=== PATIENT | male | born 1965 | race Caucasian/White ===

== ENCOUNTER 2019-09-28 10:04 | Observation (INO) ==
[2019-09-28 10:56] LABS: Basophils # 0.1 K/mcL (0.0-0.2); Basophils % 0.8 %; Eosinophils % 0.1 %; Hematocrit 43.1 % (37.5-50.1); Hemoglobin 13.7 g/dL (12.9-16.9); Immature Granulocytes % 0.3 % (0-4); Lymphocytes # 1.4 K/mcL (0.6-4.6); Lymphocytes % 10.1 %; Mean Corpuscular HGB Conc 31.8 g/dL (31.6-35.5); Mean Corpuscular Hemoglobin 27.7 pg (28.0-33.3); Mean Corpuscular Volume 87.2 fL (83.0-100.0); Mean Platelet Volume 11.1 fL (9.4-12.4); Monocytes # 1.6 K/mcL (0.0-1.3); Monocytes % 11.5 %; Neutrophils # 10.7 K/mcL (1.6-8.9); Platelet Count 368 K/mcL (140-400); Red Blood Count 4.94 M/mcL (4.19-5.50); Red Cell Distribution Width 12.7 % (11.5-14.5); Segmented Neutrophils % 77.2 %; White Blood Count 13.8 K/mcL (4.3-11.1)
[2019-09-28 11:10] LABS: Alanine Aminotransferase 76 Units/L (7-52); Albumin 3.5 g/dL (3.5-5.7); Albumin/Globulin Ratio 1.2 (1.1-2.2); Alkaline Phosphatase 191 Units/L (34-104); Aspartate Amino Transferase 74 Units/L (13-39); BUN/Creatinine Ratio 18 (6-26); Bilirubin,Total 1.4 mg/dL (0.3-1.0); Blood Urea Nitrogen 15 mg/dL (6-20); Carbon Dioxide 28 mEq/L (23-29); Chloride 99 mEq/L (98-107); Globulin 2.9 g/dL (2.4-3.5); Glucose 88 mg/dL (70-105); Lipase 7 Units/L (11-82); Osmolality,Calculated 278 (280-300); Potassium 4.3 mEq/L (3.5-5.1); Sodium 134 mEq/L (136-145); Total Protein 6.4 g/dL (6.4-8.9); Troponin I < 0.03 ng/mL (< 0.04); eGFR For African Americans > 60 (> 60); eGFR For Non-African Americans > 60 (> 60)
[2019-09-28 11:13] LABS: Bilirubin,Direct 0.7 mg/dL (0.0-0.2); Bilirubin,Indirect 0.7 mg/dL (0.0-1.0)
[2019-09-28] MEDS ORDERED: *HR* FentaNYL (PF) 100 MCG/2 ML VIAL IVP ONE (11:28)
[2019-09-28] MEDS ORDERED: 0.9 % Sodium Chloride 1,000 ML IVC ONE (11:28)
[2019-09-28] MEDS ORDERED: Naloxone 0.4 MG/ML INJ IVP PRN (11:30)
[2019-09-28] MEDS ORDERED: Ondansetron 4 MG/2 ML VIAL IVP PRN (11:30)
[2019-09-28] MEDS ORDERED: Ketorolac 15 MG/ML VIAL IVP PRN (11:36)
[2019-09-28] MEDS: 0.9 % Sodium Chloride 1,000 ML IVC SCH ×2 (13:09→22:28)
[2019-09-28 13:35] LABS: INR 1.3; Prothrombin Time 14.3 Seconds (9.4-12.1)
[2019-09-28] MEDS ORDERED: Gadolinium Contrast Agent (WT Based) IV PRN (13:46)
[2019-09-28] MEDS: *HR* FentaNYL (PF) 100 MCG/2 ML VIAL IVP PRN ×2 (15:52→22:13)
[2019-09-28 16:23] LABS: Carcinoembryonic Antigen 1.8 ng/mL (Less than 5.0)
[2019-09-28] MEDS: Nicotine 21 MG PATCH.TD24 TD SCH (20:12)
[2019-09-28] MEDS ORDERED: *HR* HYDROmorphone 2 MG TABLET PO ONE (23:28)
[2019-09-29] MEDS ORDERED: *HR* HYDROmorphone (PF) 1 MG/ML SYRINGE IVP ONE (04:43)
[2019-09-29 06:31] LABS: Basophils # 0.1 K/mcL (0.0-0.2); Basophils % 0.8 %; Eosinophils # 0.1 K/mcL (0.0-0.6); Eosinophils % 0.5 %; Hematocrit 43.1 % (37.5-50.1); Hemoglobin 14.1 g/dL (12.9-16.9); Immature Granulocytes % 0.3 % (0-4); Lymphocytes # 1.3 K/mcL (0.6-4.6); Lymphocytes % 9.2 %; Mean Corpuscular HGB Conc 32.7 g/dL (31.6-35.5); Mean Corpuscular Volume 88.5 fL (83.0-100.0); Mean Platelet Volume 11.2 fL (9.4-12.4); Monocytes # 1.8 K/mcL (0.0-1.3); Monocytes % 12.6 %; Neutrophils # 11.2 K/mcL (1.6-8.9); Platelet Count 317 K/mcL (140-400); Red Blood Count 4.87 M/mcL (4.19-5.50); Red Cell Distribution Width 12.7 % (11.5-14.5); Segmented Neutrophils % 76.6 %; White Blood Count 14.6 K/mcL (4.3-11.1)
[2019-09-29 07:01] LABS: BUN/Creatinine Ratio 18 (6-26); Blood Urea Nitrogen 14 mg/dL (6-20); Calcium 8.8 mg/dL (8.6-10.3); Carbon Dioxide 24 mEq/L (23-29); Chloride 98 mEq/L (98-107); Glucose 78 mg/dL (70-105); Magnesium 1.7 mg/dL (1.6-2.6); Osmolality,Calculated 271 (280-300); Phosphorous 2.4 mg/dL (2.7-4.5); Potassium 4.2 mEq/L (3.5-5.1); Sodium 131 mEq/L (136-145); eGFR For African Americans > 60 (> 60); eGFR For Non-African Americans > 60 (> 60)
[2019-09-29 07:02] LABS: Albumin 3.3 g/dL (3.5-5.7); Albumin/Globulin Ratio 1.2 (1.1-2.2); Bilirubin,Direct 0.8 mg/dL (0.0-0.2); Bilirubin,Indirect 0.8 mg/dL (0.0-1.0); Bilirubin,Total 1.6 mg/dL (0.3-1.0); Globulin 2.8 g/dL (2.4-3.5); Total Protein 6.1 g/dL (6.4-8.9)
[2019-09-29] MEDS: Nicotine 21 MG PATCH.TD24 TD SCH (09:01)
[2019-09-29] MEDS ORDERED: 0.9 % Sodium Chloride 500 ML ONE (09:28)
[2019-09-29] MEDS ORDERED: *HR* Midazolam HCl 2 MG/2 ML VIAL IVP ONE (09:44)
[2019-09-29] MEDS ORDERED: *HR* FentaNYL (PF) 100 MCG/2 ML VIAL IVP ONE (09:44)
[2019-09-29] MEDS ORDERED: *HR* FentaNYL (PF) 100 MCG/2 ML VIAL ONE (09:45)
[2019-09-29] MEDS ORDERED: *HR* Midazolam HCl 2 MG/2 ML VIAL ONE (09:46)
[2019-09-29 11:09] VITALS: BP 138/77
== END 2019-09-29 12:33 | disposition home or self-care (01) ==
LOC: EMEROOARM 10:04 → 3BNU 10:04 → SUATTDRO 11:35 → 3BNU 12:43
PROVIDERS: ADMIT Student in an Organized Health Care Education/Training Program; ATTEND Internal Medicine
PROC: IRLIVER (2019-09-29 12:00)

== ENCOUNTER 2019-10-17 14:41 | Inpatient (IN) ==
[2019-10-17] MEDS ORDERED: 0.9 % Sodium Chloride 1,000 ML IVC ONE (15:00)
[2019-10-17] MEDS ORDERED: *HR* HYDROmorphone (PF) 1 MG/ML SYRINGE IVP ONE ×2 (15:00→16:34)
[2019-10-17] MEDS ORDERED: Ondansetron 4 MG/2 ML VIAL IVP ONE (15:06)
[2019-10-17] MEDS ORDERED: Ondansetron 4 MG/2 ML VIAL ONE (15:06)
[2019-10-17 15:19] LABS: Basophils % 0.1 %; Eosinophils % 0.1 %; Hematocrit 44.6 % (37.5-50.1); Hemoglobin 14.4 g/dL (12.9-16.9); Immature Granulocytes % 0.6 % (0-4); Lymphocytes # 0.3 K/mcL (0.6-4.6); Lymphocytes % 1.3 %; Mean Corpuscular HGB Conc 32.3 g/dL (31.6-35.5); Mean Corpuscular Hemoglobin 28.1 pg (28.0-33.3); Mean Corpuscular Volume 87.1 fL (83.0-100.0); Mean Platelet Volume 11.2 fL (9.4-12.4); Monocytes # 1.2 K/mcL (0.0-1.3); Monocytes % 5.1 %; Neutrophils # 21.3 K/mcL (1.6-8.9); Platelet Count 357 K/mcL (140-400); Red Blood Count 5.12 M/mcL (4.19-5.50); Red Cell Distribution Width 15.6 % (11.5-14.5); Segmented Neutrophils % 92.8 %; White Blood Count 22.9 K/mcL (4.3-11.1)
[2019-10-17 15:35] LABS: Alanine Aminotransferase 192 Units/L (7-52); Alkaline Phosphatase 520 Units/L (34-104); Aspartate Amino Transferase 372 Units/L (13-39); BUN/Creatinine Ratio 41 (6-26); Bilirubin,Direct 4.8 mg/dL (0.0-0.2); Bilirubin,Indirect 2.5 mg/dL (0.0-1.0); Bilirubin,Total 7.3 mg/dL (0.3-1.0); Blood Urea Nitrogen 48 mg/dL (6-20); Calcium 8.6 mg/dL (8.6-10.3); Carbon Dioxide 26 mEq/L (23-29); Chloride 99 mEq/L (98-107); Globulin 3.1 g/dL (2.4-3.5); Glucose 126 mg/dL (70-105); Lipase 12 Units/L (11-82); Osmolality,Calculated 290 (280-300); Potassium 5.3 mEq/L (3.5-5.1); Sodium 133 mEq/L (136-145); Total Protein 6.1 g/dL (6.4-8.9); eGFR For African Americans > 60 (> 60); eGFR For Non-African Americans > 60 (> 60)
[2019-10-17 16:12] LABS: Platelet Estimate Normal (Normal)
[2019-10-17] MEDS: Nicotine 21 MG PATCH.TD24 TD SCH (16:16)
[2019-10-17 16:37] LABS: INR 1.1; Prothrombin Time 12.5 Seconds (9.4-12.1)
[2019-10-17] MEDS ORDERED: Isovue-370 500 ML BOTTLE IVP ONE (17:06)
[2019-10-17 18:55] LABS: Bilirubin,Urine Moderate (Negative); Blood,Urine Negative (Negative); Clarity,Urine Clear (Clear); Color,Urine Dark-Yellow (Yellow); Glucose,Urine (UA) Normal (Normal); Ketones,Urine Negative (Negative); Leukocyte Esterase,Urine Negative (Negative); Nitrite,Urine Negative (Negative); PH,Urine 5.5 pH Units (5.0-8.0); Protein,Urine Trace mg/dL (Neg-Trace); Specific Gravity,Urine 1.025 (1.010-1.025)
[2019-10-17] MEDS ORDERED: Acetaminophen 325 MG TABLET PO PRN (20:04)
[2019-10-17] MEDS ORDERED: Ondansetron 4 MG/2 ML VIAL IVP PRN (20:04)
[2019-10-17] MEDS ORDERED: *HR* OxyCODONE Immed Rel 5 MG TABLET PO PRN (20:04)
[2019-10-17] MEDS ORDERED: Naloxone 0.4 MG/ML INJ IVP PRN (20:04)
[2019-10-17] MEDS ORDERED: *HR* Promethazine 25 MG/ML VIAL IVP PRN (20:04)
[2019-10-17] MEDS ORDERED: Ondansetron ODT 4 MG TAB.RAPDIS PO PRN (20:06)
[2019-10-17] MEDS ORDERED: 0.9 % Sodium Chloride 1,000 ML IVC SCH (20:15)
[2019-10-18] MEDS ORDERED: *HR* OxyCODONE Immed Rel 5 MG TABLET PO PRN ×3 (00:22→21:34)
[2019-10-18] MEDS ORDERED: *HR* HYDROmorphone 2 MG/ML SYRINGE IVP ONE (00:23)
[2019-10-18] MEDS ORDERED: Bisacodyl 10 MG RECTAL SUPPOSITORY RC PRN (00:28)
[2019-10-18] MEDS ORDERED: GI Cocktail 40 ML EACH PO ONE (00:30)
[2019-10-18] MEDS: Pantoprazole 40 MG VIAL IVP SCH ×3 (00:49→19:59)
[2019-10-18] MEDS: Furosemide 40 MG/4 ML VIAL IVP SCH (00:49)
[2019-10-18 02:14] LABS: Basophils % 0.1 %; Hematocrit 40.4 % (37.5-50.1); Hemoglobin 13.1 g/dL (12.9-16.9); Immature Granulocytes % 0.9 % (0-4); Lymphocytes # 0.5 K/mcL (0.6-4.6); Mean Corpuscular HGB Conc 32.4 g/dL (31.6-35.5); Mean Corpuscular Hemoglobin 27.9 pg (28.0-33.3); Mean Corpuscular Volume 86.1 fL (83.0-100.0); Mean Platelet Volume 11.5 fL (9.4-12.4); Monocytes # 0.8 K/mcL (0.0-1.3); Monocytes % 3.6 %; Neutrophils # 20.8 K/mcL (1.6-8.9); Platelet Count 290 K/mcL (140-400); Red Blood Count 4.69 M/mcL (4.19-5.50); Red Cell Distribution Width 15.8 % (11.5-14.5); Segmented Neutrophils % 93.4 %; White Blood Count 22.3 K/mcL (4.3-11.1)
[2019-10-18 02:26] LABS: INR 1.2; Prothrombin Time 13.6 Seconds (9.4-12.1)
[2019-10-18 02:32] LABS: Alanine Aminotransferase 174 Units/L (7-52); Albumin 2.6 g/dL (3.5-5.7); Albumin/Globulin Ratio 0.9 (1.1-2.2); Alkaline Phosphatase 437 Units/L (34-104); Aspartate Amino Transferase 333 Units/L (13-39); BUN/Creatinine Ratio 46 (6-26); Bilirubin,Total 7.6 mg/dL (0.3-1.0); Blood Urea Nitrogen 53 mg/dL (6-20); Calcium 7.9 mg/dL (8.6-10.3); Carbon Dioxide 19 mEq/L (23-29); Chloride 102 mEq/L (98-107); Globulin 2.8 g/dL (2.4-3.5); Glucose 104 mg/dL (70-105); Magnesium 2.5 mg/dL (1.6-2.6); Osmolality,Calculated 289 (280-300); Potassium 5.1 mEq/L (3.5-5.1); Sodium 132 mEq/L (136-145); Total Protein 5.4 g/dL (6.4-8.9); eGFR For African Americans > 60 (> 60); eGFR For Non-African Americans > 60 (> 60)
[2019-10-18] MEDS ORDERED: *HR* OxyCODONE ER (12 HR) 10 MG TABLET PO SCH (06:00)
[2019-10-18] MEDS: *HR* Enoxaparin 40 MG/0.4 ML SYRINGE SQ SCH (06:14)
[2019-10-18] MEDS: Nicotine 21 MG PATCH.TD24 TD SCH (08:30)
[2019-10-18] MEDS: Sennosides/Docusate Sodium TABLET PO SCH ×2 (08:30→20:03)
[2019-10-18] MEDS ORDERED: *HR* Promethazine 25 MG/ML VIAL IVP PRN (11:10)
[2019-10-18] MEDS ORDERED: Naloxone 0.4 MG/ML INJ IVP PRN (11:40)
[2019-10-18] MEDS ORDERED: Clindamycin 600 MG/50 ML 600 MG/50 ML IV.SOLN IVPB SCH (16:00)
[2019-10-18] MEDS ORDERED: Furosemide 40 MG/4 ML VIAL IVP ONE (17:52)
[2019-10-18] MEDS ORDERED: *HR* OxyCODONE/APAP 10/325 TABLET PO PRN (17:53)
[2019-10-18] MEDS ORDERED: *HR* OxyCODONE/APAP 5/325 TABLET PO PRN (17:53)
[2019-10-18] MEDS ORDERED: *HR* FentaNYL PATCH 12 MCG PATCH TD SCH (18:00)
[2019-10-18] MEDS: Famotidine 20 MG TABLET PO SCH (19:58)
[2019-10-18] MEDS: *HR* OxyCODONE Immed Rel 5 MG TABLET PO PRN (22:36)
[2019-10-19 02:17] LABS: Albumin 2.5 g/dL (3.5-5.7); Albumin/Globulin Ratio 0.9 (1.1-2.2); Bilirubin,Direct 6.6 mg/dL (0.0-0.2); Bilirubin,Indirect 2.6 mg/dL (0.0-1.0); Bilirubin,Total 9.2 mg/dL (0.3-1.0); Globulin 2.7 g/dL (2.4-3.5); Total Protein 5.2 g/dL (6.4-8.9)
[2019-10-19] MEDS: *HR* OxyCODONE Immed Rel 5 MG TABLET PO PRN ×2 (02:42→20:18)
[2019-10-19] MEDS: *HR* Enoxaparin 40 MG/0.4 ML SYRINGE SQ SCH (05:45)
[2019-10-19] MEDS: Furosemide 40 MG/4 ML VIAL IVP SCH (11:12)
[2019-10-19] MEDS: Nicotine 21 MG PATCH.TD24 TD SCH (11:13)
[2019-10-19] MEDS: Sennosides/Docusate Sodium TABLET PO SCH ×2 (11:13→20:17)
[2019-10-19] MEDS: Famotidine 20 MG TABLET PO SCH ×2 (11:13→20:17)
[2019-10-19] MEDS: Pantoprazole 40 MG VIAL IVP SCH ×2 (11:14→20:18)
[2019-10-19] MEDS: MetroNIDAZOLE 500 MG/100 ML 500 MG/100 ML BAG IVPB SCH ×2 (11:14→16:51)
[2019-10-20] MEDS: MetroNIDAZOLE 500 MG/100 ML 500 MG/100 ML BAG IVPB SCH ×2 (00:26→08:20)
[2019-10-20 02:00] LABS: Basophils % 0.1 %; Eosinophils # 0.1 K/mcL (0.0-0.6); Eosinophils % 0.4 %; Hemoglobin 11.9 g/dL (12.9-16.9); Immature Granulocytes % 0.3 % (0-4); Lymphocytes # 0.6 K/mcL (0.6-4.6); Lymphocytes % 4.3 %; Mean Corpuscular Hemoglobin 28.1 pg (28.0-33.3); Mean Corpuscular Volume 82.7 fL (83.0-100.0); Mean Platelet Volume 10.9 fL (9.4-12.4); Monocytes # 0.1 K/mcL (0.0-1.3); Monocytes % 0.4 %; Platelet Count 232 K/mcL (140-400); Red Blood Count 4.23 M/mcL (4.19-5.50); Red Cell Distribution Width 15.7 % (11.5-14.5); Segmented Neutrophils % 94.5 %; White Blood Count 14.8 K/mcL (4.3-11.1)
[2019-10-20 02:21] LABS: Alanine Aminotransferase 193 Units/L (7-52); Albumin 2.4 g/dL (3.5-5.7); Alkaline Phosphatase 411 Units/L (34-104); Aspartate Amino Transferase 306 Units/L (13-39); BUN/Creatinine Ratio 48 (6-26); Bilirubin,Total 9.3 mg/dL (0.3-1.0); Blood Urea Nitrogen 50 mg/dL (6-20); Calcium 7.6 mg/dL (8.6-10.3); Carbon Dioxide 21 mEq/L (23-29); Chloride 100 mEq/L (98-107); Globulin 2.5 g/dL (2.4-3.5); Glucose 101 mg/dL (70-105); Osmolality,Calculated 283 (280-300); Potassium 4.5 mEq/L (3.5-5.1); Sodium 130 mEq/L (136-145); Total Protein 4.9 g/dL (6.4-8.9); eGFR For African Americans > 60 (> 60); eGFR For Non-African Americans > 60 (> 60)
[2019-10-20] MEDS: *HR* Enoxaparin 40 MG/0.4 ML SYRINGE SQ SCH (06:12)
[2019-10-20] MEDS: *HR* OxyCODONE Immed Rel 5 MG TABLET PO PRN ×2 (06:17→15:56)
[2019-10-20] MEDS: Furosemide 40 MG/4 ML VIAL IVP SCH (08:18)
[2019-10-20] MEDS: Famotidine 20 MG TABLET PO SCH (08:19)
[2019-10-20] MEDS: Pantoprazole 40 MG VIAL IVP SCH (08:19)
[2019-10-20] MEDS: Nicotine 21 MG PATCH.TD24 TD SCH (08:20)
[2019-10-20] MEDS: Sennosides/Docusate Sodium TABLET PO SCH (08:20)
[2019-10-20 14:26] VITALS: BP 111/70
[2019-10-20] MEDS ORDERED: Furosemide 20 MG TABLET PO PRN (15:12)
[2019-10-20] MEDS ORDERED: dexAMETHasone 4 MG TABLET PO SCH (21:00)
== END 2019-10-20 18:20 | disposition home or self-care (01) | DRG 391 ==
LOC: 3ANU 14:41 → EMEROOARM 14:41 → 3ANU 19:43
PROVIDERS: ADMIT Family Medicine; ATTEND Family Medicine